=== PATIENT | female | born 1970 | race Asian ===

== ENCOUNTER 2019-10-13 20:07 | Observation (INO) | payer OTHER ==
[~2019-10-13] VITALS: Ht 154.9 cm; Wt 68.1 kg
--- NOTE | 2019-10-13 20:21 | NUR ---
TO TRIAGE FOR EVAL
[2019-10-13] MEDS ORDERED: LABETALOL 5MG/ML, 20ML IVPush PRN (20:30)
[2019-10-13] MEDS ORDERED: LABETALOL 5MG/ML, 20ML ONE (20:33)
[2019-10-13 20:40] LABS: BASOPHILS # (AUTO) 0.07 x10^3/uL (0-0.1); BASOPHILS % (AUTO) 1 % (0-1); EOSINOPHILS # (AUTO) 0.35 x10^3/uL (0-0.4); EOSINOPHILS % (AUTO) 5 % (1-7); LYMPHOCYTES # (AUTO) 2.17 x10^3/uL (1-3.4); LYMPHOCYTES % (AUTO) 29 % (22-44); MD NO; MEAN CORPUSCULAR HEMOGLOBIN 28.2 pg (27.0-34.8); MEAN CORPUSCULAR HGB CONC 33.8 g/dL (32.4-35.8); MEAN CORPUSCULAR VOLUME 83.4 fL (80-100); MEAN PLATELET VOLUME 7.4 fL (7.4-10.4); MONOCYTES # (AUTO) 0.41 x10^3/uL (0.2-0.8); MONOCYTES % (AUTO) 5 % (2-9); NEUTROPHILS # (AUTO) 4.59 x10^3/uL (1.8-6.8); NEUTROPHILS % (AUTO) 61 % (42-75); PLATELET COUNT 286 x10^3/uL (130-400); RED BLOOD COUNT 4.37 x10^6/uL (3.82-5.3); RED CELL DISTRIBUTION WIDTH 14.2 % (9.6-15.2)
[2019-10-13 20:54] LABS: TROPONIN I < 0.015 ng/mL (0.000-0.045)
[2019-10-13] MEDS ORDERED: OMNIPAQUE 350 MG/ML, 100ML BOTTLE ONE (20:55)
[2019-10-13 20:57] LABS: INTERNATIONAL NORMALIZED RATIO 0.93 (0.93-1.1); PROTHROMBIN TIME 9.9 Seconds (9.6-11.5)
[2019-10-13] MEDS ORDERED: HYDR25TA6 PO (20:57)
[2019-10-13] MEDS ORDERED: LISI-170 PO (20:57)
[2019-10-13] MEDS ORDERED: PLEASE ENTER ALLERGIES MC SCH (21:00)
[2019-10-13] MEDS ORDERED: POTASSIUM CHLORIDE 40 MEQ in SODIUM CHLORIDE 0.9% 500 ML IV ONE (21:00)
--- NOTE | 2019-10-13 21:03 | NUR ---
DECREASED HEARING, HEADACHE, HTN SINCE 1699. ON LISINOPRIL. LEFT ARM SENSORY DEFECITS. NO STRENGTH DEFICITS. PER TRIAGE
[2019-10-13] MEDS ORDERED: DIPHENHYDRAMINE 50 MG/ML, 1ML IVPush ONE (21:30)
[2019-10-13] MEDS ORDERED: METOCLOPRAMIDE 5 MG/ML, 2ML IVPush ONE (21:30)
[2019-10-13] MEDS ORDERED: DIPHENHYDRAMINE 50 MG/ML, 1ML ONE (21:45)
[2019-10-13] MEDS ORDERED: METOCLOPRAMIDE 5 MG/ML, 2ML ONE (21:45)
--- NOTE | 2019-10-13 21:50 | NUR ---
MEDICATED PER SHAY PT IS RESTING BP IS STABILIZED PT STATED " I STILL HAVE HEADACHE ' FELY AT BED SIDE
--- NOTE | 2019-10-13 22:51 | NUR ---
PT UP AMBULATED TO BATHROOM WITH STABLE GAIT
--- NOTE | 2019-10-13 22:56 | NUR ---
GIVEN REPORT TO LYNETTE TIERNEY 491-2 PT WAS ABLE TO DRINK WATER W/O DIFFICULTY PT STATED SHAY IS BETTER NOW BUT STILL SLIGHT NUMB AT LEFT FACE LEFT ARM STRENGTH WAS BACK BUT STILL HAVING PAIN AT RT THIGH
[2019-10-13] MEDS ORDERED: DOCUSATE 100 MG CAPSULE PO PRN (23:00)
[2019-10-13] MEDS ORDERED: POLYETHYLENE GLYCOL 17 GM PACKET PO PRN (23:00)
[2019-10-13] MEDS ORDERED: ENALAPRILAT 1.25 MG/ML, 2ML IV PRN (23:00)
[2019-10-13] MEDS ORDERED: BISACODYL 10 MG SUPP PR PRN (23:00)
[2019-10-13] MEDS ORDERED: ACETAMINOPHEN 650 MG/20.3 ML UDC PO PRN (23:00)
[2019-10-13] MEDS ORDERED: ONDANSETRON 4 MG TABLET PO PRN (23:00)
[2019-10-13 23:19] VITALS: BP 120/77
[2019-10-14 00:39] VITALS: BP 117/76
[2019-10-14 05:48] LABS: BASOPHILS # (AUTO) 0.03 x10^3/uL (0-0.1); BASOPHILS % (AUTO) 1 % (0-1); EOSINOPHILS # (AUTO) 0.24 x10^3/uL (0-0.4); EOSINOPHILS % (AUTO) 4 % (1-7); LYMPHOCYTES # (AUTO) 1.59 x10^3/uL (1-3.4); LYMPHOCYTES % (AUTO) 25 % (22-44); MD NO; MEAN CORPUSCULAR HEMOGLOBIN 28.1 pg (27.0-34.8); MEAN CORPUSCULAR HGB CONC 33.7 g/dL (32.4-35.8); MEAN CORPUSCULAR VOLUME 83.3 fL (80-100); MEAN PLATELET VOLUME 7.6 fL (7.4-10.4); MONOCYTES % (AUTO) 6 % (2-9); NEUTROPHILS # (AUTO) 4.25 x10^3/uL (1.8-6.8); NEUTROPHILS % (AUTO) 65 % (42-75); PLATELET COUNT 274 x10^3/uL (130-400); RED BLOOD COUNT 4.05 x10^6/uL (3.82-5.3); RED CELL DISTRIBUTION WIDTH 14.4 % (9.6-15.2)
[2019-10-14 05:49] LABS: ALBUMIN 3.5 g/dL (3.4-5.0); ANION GAP 7 mmol/L (5-15); CALCIUM 8.3 mg/dL (8.5-10.1); CHLORIDE 106 mmol/L (98-107)
[2019-10-14 05:53] LABS: ALANINE AMINOTRANSFERASE 17 U/L (12-78); ALKALINE PHOSPHATASE 62 U/L (45-117); CHOL/HDL RATIO 2.7; CHOLESTEROL, TOTAL 177 mg/dL (140-239); CREATININE 0.84 mg/dL (0.55-1.02); HDL CHOL % 37 % (28-40); HDL CHOLESTEROL (DIRECT) 66 mg/dL (40-60); LDL CHOLESTEROL,CALCULATED 92 mg/dL (54-169); LDL/HDL RATIO 1.4 (0.5-3.0); TOTAL PROTEIN 7.7 g/dL (6.4-8.2); TRIGLYCERIDES 93 mg/dL (50-200); VLDL CHOLESTEROL 19 mg/dL (0-25)
[2019-10-14 07:26] VITALS: BP 118/79
[2019-10-14] MEDS ORDERED: ENOXAPARIN 40 MG/0.4 ML SQ SCH (08:30)
[2019-10-14] MEDS ORDERED: POTASSIUM CHLORIDE 20 MEQ TAB.ER.PRT PO ONE (08:30)
[2019-10-14] MEDS ORDERED: ACETAMINOPHEN 650 MG/20.3 ML UDC PO PRN (08:30)
[2019-10-14] MEDS ORDERED: HYDROCHLOROTHIAZIDE 25 MG TABLET PO SCH (09:00)
[2019-10-14] MEDS ORDERED: LISINOPRIL 20 MG TABLET PO SCH (09:00)
[2019-10-14] MEDS ORDERED: ASPIRIN 81 MG TABLET CHEW PO/NG SCH (09:00)
[2019-10-14 12:30] VITALS: BP 127/86
[2019-10-14] MEDS ORDERED: FLU VACC QS2019-20 36MOS UP/PF 0.5 ML IM-VACC ONE (13:00)
[2019-10-14] MEDS ORDERED: ATORVASTATIN 40 MG TABLET PO SCH (21:00)
== END 2019-10-14 14:46 | disposition home or self-care (01) ==
LOC: ED 22:48 → EDIP 23:17 → INTOOBSV 23:17 → 4EST 23:20 → DCLOUNGE 10-14 14:34
PROVIDERS: ADMIT Family Medicine; ATTEND Family Medicine
DX: G43.909 Migraine, unspecified, not intractable, without status migrainosus (principal); I16.1 Hypertensive emergency; E87.6 Hypokalemia; G43.109 Migraine with aura, not intractable, without status migrainosus; G47.00 Insomnia, unspecified; H91.90 Unspecified hearing loss, unspecified ear; I10 Essential (primary) hypertension; R29.810 Facial weakness; Z79.899 Other long term (current) drug therapy; Z23 Encounter for immunization
CPT/HCPCS: 36415; 70450; 70496; 70498; 70551; 80047; 80053; 80061; 84484; 85025; 85610; 85730; 90471; 90686; 93005; 93306; 96365; 96366; 96375; 97161; 97165; 99285; G0378; J1200; J1650; J2765; J3480; J7040; Q9967; 96372

== ENCOUNTER 2021-01-29 17:18 | Emergency (ER) | payer OTHER ==
[~2021-01-29] VITALS: Ht 154.9 cm; Wt 69.7 kg
[~2021-01-29 17:18] MED LIST: HYDR25TA6 PO; LISI-170 PO
[2021-01-29 18:01] LABS: BASOPHILS % (AUTO) 1 % (0-1); EOSINOPHILS % (AUTO) 3 % (1-7); LYMPHOCYTES % (AUTO) 29 % (22-44); MD NO; MEAN CORPUSCULAR HEMOGLOBIN 28.9 pg (27.0-34.8); MEAN CORPUSCULAR HGB CONC 34.1 g/dL (32.4-35.8); MEAN PLATELET VOLUME 7.6 fL (7.4-10.4); MONOCYTES % (AUTO) 6 % (2-9); NEUTROPHILS % (AUTO) 61 % (42-75); PLATELET COUNT 332 x10^3/uL (130-400); RED BLOOD COUNT 4.59 x10^6/uL (3.82-5.3); RED CELL DISTRIBUTION WIDTH 15.4 % (9.6-15.2)
--- NOTE | 2021-01-29 18:05 | NUR ---
task rn, dr polo at bedside for pelvic exam with this rn present
[2021-01-29 18:08] LABS: ALANINE AMINOTRANSFERASE 20 U/L (12-78); ALBUMIN 3.9 g/dL (3.4-5.0); ANION GAP 7 mmol/L (5-15); CALCIUM 8.6 mg/dL (8.5-10.1); CHLORIDE 109 mmol/L (98-107)
[2021-01-29 18:12] LABS: ALKALINE PHOSPHATASE 85 U/L (45-117); BILIRUBIN,TOTAL 0.8 mg/dL (0.2-1.0); TOTAL PROTEIN 8.7 g/dL (6.4-8.2)
--- NOTE | 2021-01-29 18:47 | NUR ---
ALL RESULTS ARE BACK AT THIS TIME. CHART UP FOR RECHECK.
[2021-01-29 19:02] VITALS: BP 160/85
== END 2021-01-29 19:25 | disposition home or self-care (01) ==
LOC: ED 18:29
DX: N92.0 Excessive and frequent menstruation with regular cycle (principal); I10 Essential (primary) hypertension
CPT/HCPCS: 36415; 76830; 80053; 84703; 85025; 86850; 86900; 99284